=== PATIENT | female | born 1990 | race Caucasian/White ===

== ENCOUNTER 2017-01-25 00:10 | Emergency (ER) | payer OTHER, SELFPAY ==
[~2017-01-25] VITALS: Ht 180.3 cm; Wt 95.2 kg
[~2017-01-25 00:10] MED LIST: AMBIEN5 MG PO; FLAGYL500 MG PO; MOTRIN800 MG PO; ULTRAM50 MG PO
== END 2017-01-25 02:34 | disposition short-term general hospital (02) ==
LOC: ER 00:10
DX: R10.11 Right upper quadrant pain (principal)
CPT/HCPCS: J1885

== ENCOUNTER → 2017-01-28 | Outpatient (CLI) | payer OTHER, SELFPAY | END | disposition short-term general hospital (02) | LOC: CLSURG 08:36 | DX: K80.10 Calculus of gallbladder with chronic cholecystitis without obstruction (principal) ==

== ENCOUNTER 2017-02-04 08:13 | Day surgery (SDC) | payer OTHER, SELFPAY ==
[~2017-02-04] VITALS: Ht 180.3 cm; Wt 95.3 kg
== END 2017-02-04 13:30 | disposition short-term general hospital (02) ==
LOC: SURGOP 08:13
PROC: 0FT44ZZ Resection of Gallbladder, Percutaneous Endoscopic Approach (ICD-10-PCS; principal; 2017-02-04)
DX: K80.10 Calculus of gallbladder with chronic cholecystitis without obstruction (principal); F32.9 Major depressive disorder, single episode, unspecified
CPT/HCPCS: J0690; J1100; J1170; J1200; J1885; J2250; J2270; J2405; J2710; J3010

== ENCOUNTER → 2017-02-11 | Outpatient (CLI) | payer OTHER, SELFPAY | END | disposition short-term general hospital (02) | LOC: CLSURG 08:24 | DX: Z48.815 Encounter for surgical aftercare following surgery on the digestive system (principal); Z90.49 Acquired absence of other specified parts of digestive tract ==